=== PATIENT | male | born 1985 | race Caucasian/White ===

== ENCOUNTER 2022-02-23 19:56 | Emergency (ER) | payer SELFPAY ==
[~2022-02-23] VITALS: Ht 182.9 cm; Wt 140.6 kg
== END 2022-02-23 21:29 | disposition home or self-care (01) ==
LOC: ER 19:56
DX: S61.012A Laceration without foreign body of left thumb without damage to nail, initial encounter (principal); W26.8XXA Contact with other sharp object(s), not elsewhere classified, initial encounter; Y99.0 Civilian activity done for income or pay
CPT/HCPCS: 73140; J1885